=== PATIENT | male | born 1965 | race Caucasian/White ===

== ENCOUNTER 2024-12-06 16:19 | Inpatient (IN) | payer OTHER, SELFPAY ==
[2024-12-06 12:59] VITALS: BP 121/97
[2024-12-06 13:28] LABS: % Basophils 0.4 % (0-2); % Eosinophils 0.3 % (0-6); % Immature Granulocytes 0.3 % (0-0.5); % Lymphocytes 19.7 % (20.5-51.1); % Monocytes 11.2 % (1.7-9.3); % Neutrophils 68.1 % (42.2-75.2); Absolute Lymphocytes 1.8 10^3/uL (1.2-3.4); Absolute Neutrophils 6.1 10^3/uL (1.4-6.5); Hematocrit 43.6 % (39.0-52.0); Hemoglobin 15.1 g/dL (13.0-18.0); Mean Corp Hgb Conc. 34.6 g/dL (33.0-37.0); Mean Corpuscular Hgb 29.1 pg (27.0-31.0); Mean Platelet Volume 8.6 fL (7.4-10.4); Nucleated Red Blood Cells % 0 % (-); Platelet Count 180 10^3/uL (130-400); Red Blood Cell Count 5.19 10^6/uL (4.70-6.10); Red Cell Dist. Width 12.8 % (11.5-14.5); White Blood Cell Count 8.9 10^3/uL (4.8-10.8)
[2024-12-06 13:40] LABS: ALT (SGPT) 16 U/L (0-50); AST (SGOT) 20 U/L (17-59); Albumin 4.4 g/dl (3.5-5.0); Alkaline Phosphatase 69 U/L (38-126); Blood Urea Nitrogen 20 mg/dl (9-20); Carbon Dioxide 22 mmol/L (22-30); Chloride 95 mmol/L (98-107); Glucose 352 mg/dl (70-99); Potassium 3.8 mmol/L (3.5-5.1); Sodium 131 mmol/L (135-145); Total Bilirubin 0.8 mg/dl (0.2-1.3); Total Protein 6.8 g/dl (6.3-8.2); eGFR > 60.00
[2024-12-06 13:52] LABS: COVID-19 Antigen Negative (Negative)
[2024-12-06 13:54] LABS: Troponin I 0.261 ng/ml
[2024-12-06 14:48] VITALS: BP 116/82
[2024-12-06 15:01] VITALS: BP 124/82
--- NOTE | 2024-12-06 15:15 | ED.GENMED ---
History of Present Illness
General
Chief Complaint: Cardiac Symptoms
Source: patient
Exam Limitations: none
Time Seen by Provider: 12/06/24 14:42
Nursing documentation reviewed up to this point in time: agreed with
History of Present Illness
History of Present Illness:
Patient presents to ED secondary to 5-day history of chills, body ache, nonproductive cough, along with decreased appetite, as well as intermittent lightheaded sensation. Denies chest pain or shortness of breath. Denies nausea or vomiting. Denies
fever. Denies sore throat. Denies diarrhea. Denies rash. Patient's spouse is currently experiencing similar symptoms. Denies recent travel. Patient was evaluated at urgent care center, shortly prior to arrival, where he tested positive for
flu, but also had abnormal EKG. Denies smoking. There is family history of heart disease, however, with his father having had cardiac bypass at age of 50.
Review of Systems
Review of Systems
Allergies reviewed?: Yes
All Other Systems: ROS reviewed and negative except as documented in HPI and ROS
Constitutional: Reports no symptoms; Denies fever or chills
EENT: Reports no symptoms
Respiratory: Reports cough; Denies trouble breathing
Cardiac: Reports no symptoms; Denies chest pain or palpitations
ABD/GI: Reports no symptoms; Denies vomiting or diarrhea
: Reports no symptoms
Musculoskeletal: Reports muscle pain
Skin: Reports no symptoms
Neurological: Reports no symptoms
Phy Exam
Physical Exam
Physical Exam:
Physical Exam
General: no apparent distress, not acutely ill. afebrile
Head: nc/at. eomi
Neck: supple. normal range of motion.
Heart: s1/s2 regular rate and rhythm, no murmur.
Lungs: no acute respiratory distress. clear bilaterally
Abdomen: normal bowel sounds. not tender.
Neuro: alert and oriented x 3. no focal neurological deficits
Skin: no rash
Psychiatric: well kept. interactive and cooperative
Extremities: no edema. no calf tenderness.
Course
Orders/Labs/Results
Orders:
Orders
12/06/24 Breakfast
2200 calorie (18 carb) Diabetic
At Your Request: Full Participation
12/06/24 12:58
EKG [Electrocardiogram (*1)] Urgent
Reason for Study: Palpitations
EKG- Treatment ONCE
12/06/24 13:05
ECG [Electrocardiogram (*1)] Urgent
Reason for Study: Chest Pain
EKG- Treatment ONCE
12/06/24 13:19
COVID-19 Antigen Urgent
Source: Nasal Swab
Complete Blood Count/With Diff Urgent
Comprehensive Metabolic Panel Urgent
Troponin I Urgent
Influenza A+B Rapid Molecular Urgent
ESTHER Source: Nasal Swab
Specimen Description:
12/06/24 15:15
Aspirin Chewable [Low Strength Aspirin] 324 mg PO NOW STA
12/06/24 15:38
Admit/Transfer Patient As Directed
Co-Sign Provider:
Level of Care: Inpatient admission
Assign to:: Telemetry
Physician / Group: lianna
Diagnosis: elevated trop concern for NSTEMI
Reason for Telemetry: Arrhythmia
Date to Stop Telemetry: 12/09/24
Time to Stop Telemetry: 11:00
Reason for Hospitalization: NSTEMI
Expected length of stay greater than two midnights?: Yes
ELOS- Estimated Length of Stay in days: 3
I certify the patient meets the requirements for IP care: Yes
PRN Pain Medication Management As Directed
May give lesser potent ordered pain med per pt: Yes
preference::
Protocol:: Medication orders for pain may be administered in a
manner that supports deferring to patient preference
when the pt is:
- Requesting an ordered lesser potent pain medication.
Least to most potent pain medications are defined
as: acetaminophen < NSAID < tramadol < opioids
(morphine, oxycodone, hydromorphone).
- Requesting a lesser dose of the same medication IF
ORDERED.
- Requesting a less intrusive route of administration
if both routes are prescribed by the provider (PO <
IV).
12/06/24 15:39
Code Status As Directed
Resuscitation Status: Full Code
12/06/24 17:19
Troponin I Q6H
Acetaminophen [Tylenol] 650 mg PO Q4HPRN PRN
Benzonatate [Tessalon Perles] 200 mg PO TIDPRN PRN
Bisacodyl [Dulcolax] 10 mg RECTAL [id number] PRN
Dextrose 50%-Water [Dextrose 50% Syringe] 12.5 grams IV [id number] PRN
Docusate W/Senna [Senokot-S] 1 tablet PO BIDPRN PRN
Glucagon [GlucaGen] 1 mg IM PRN PRN
Insulin Aspart Corrective Mod [Novolog Flexpen-Moderate Resistance] See Protocol SC AC
Insulin Glargine Lantus [Lantus] 10 units Subcutaneous Insulin Syringe [Syringe-Insulin] 0 unit SC ONCE
Polyethylene Glycol Powder [Miralax] 17 grams PO DAILYPRN PRN
12/06/24 17:19
CARDIOLOGY CONSULT Routine
Consulting Provider: Adam Lu
Was physician already notified: Yes
Activity As Directed
Activity Level: As Tolerated
Bedside Glucose Monitoring As Directed
Frequency: AC&HS
Additional Instructions:: Change to q6h if pt on TPN, tube feeding or not eating
Vital Signs As Directed
Frequency: Per unit guidelines
DX Deep Vein Thrombosis Video Routine
12/06/24 18:00
Atorvastatin [Lipitor] 40 mg PO QPM
Enoxaparin Sodium [Lovenox] 40 mg SC QPM
12/06/24 23:19
Troponin I Q6H
12/07/24 06:00
Cardiovascular Evaluation IN AM
Glycohemoglobin (HgbA1c) IN AM
12/07/24 08:00
Aspirin Chewable [Low Strength Aspirin] 81 mg PO DAILY
Insulin Glargine Lantus [Lantus] 10 units Subcutaneous Insulin Syringe [Syringe-Insulin] 0 unit SC DAILY
Pantoprazole [Protonix] 40 mg PO DAILY
Valsartan [Diovan] 80 mg PO DAILY
12/09/24 11:00
DC Protocol for Telemetry ONCE
Abnormal Lab Results
12/06/24
13:19
Absolute Monos (auto) 1.0 H 10^3/uL
(0.1-0.6)
Lymphocytes % 19.7 L %
(20.5-51.1)
Monocytes % 11.2 H %
(1.7-9.3)
Sodium 131 L mmol/L
(135-145)
Chloride 95 L mmol/L
(98-107)
Creatinine 0.6 L mg/dL
(0.7-1.3)
Glucose 352 H mg/dl
(70-99)
Troponin I 0.261 H* ng/ml
12/06/24 13:19
12/06/24 13:19
Vital Signs
Initial and Last Documented VS:
Initial Vital Signs
Temp Pulse Resp BP Pulse Ox
98.0 F 92 16 121/97 98
12/06/24 12:59 12/06/24 12:59 12/06/24 12:59 12/06/24 12:59 12/06/24 12:59
Last Documented Vital Signs
Temp Pulse Resp BP Pulse Ox
98.3 F 85 18 123/75 97
12/06/24 18:41 12/06/24 18:41 12/06/24 18:41 12/06/24 18:41 12/06/24 18:41
MDM/Problems Addressed
MDM/Problems Addressed:
Influenza positive. Elevated troponin noted, without any significant changes noted on initial EKG. Patient remains chest pain-free.
Patient evaluated in ED by cardiology, Dr. Lu. Recommends admission to hospital service for further evaluation and treatment.
Aspirin 325mg given @ prior to arrival.
*Critical Care Note
Total Time (30-74mins, 75-104mins- exclusive of procedures): Not Applicable
ED Attending Note
-
Portions of this chart may have been created with voice recognition software.� Occasional wrong word or��sound alike� substitutions may have occurred due to the inherent limitations of voice recognition software.
Discharge Plan
Departure
Patient Disposition: Admit
Date of Disposition: 12/06/24
Time of Disposition: 15:26
Admit to: Telemetry
Presentation/result/management discussed w/ accepting MD/DO: Hospitalist
Discharge Problem:
Influenza, Abnormal cardiac enzyme level
Interventions
Interventions:
*Risk Screen - Suicide Last Done: 12/06/24 15:24
*General Assessment Last Done: 12/06/24 15:24
*Neglect/Abuse Screening Last Done: 12/06/24 15:24
ED- Fall Risk Assessment Last Done: 12/06/24 15:26
*ED COVID-19 Vaccine History Last Done: 12/06/24 15:24
*Nursing Disposition Last Done: 12/06/24 16:51
ED- Cardiac Assessment Last Done: 12/06/24 15:25
ED- Pulmonary Assessment Last Done: 12/06/24 15:25
Discharge Date and Time
Discharge Date/Time: 12/06/24 17:02
--- NOTE | 2024-12-06 15:17 | CON.CAR ---
Addendum entered and electronically signed by Adam Lu MD 12/06/24 16:02:
I saw and examined the patient.
The MOLDER SWEEP or PA's note was reviewed and I agree with the note.
Comment: General: Well developed, well nourished in NAD.
Neck: Supple, no JVD, HJR, carotids +2 B/L, no bruits bilaterally.
Heart: Non displaced PMI, RRR, no murmurs, No S3, S4, no rubs.
Lungs: Scattered rhonchi
Extremities: No clubbing, cyanosis or edema bilaterally.
Neuro: Grossly nonfocal, awake, alert and oriented x3.
Blair has a history of hypertension, diabetes, hyperlipidemia. He has had 4 days of flu symptoms with achiness and cough. He also has had right lower abdominal upper chest chest cramping. He went to urgent care today and went to the ER based on his
EKG. In ER found to have a troponin of 0.2 and cardiology consult. He denies any chest pain or shortness of breath.
Suspect this is a nonmyocardial ischemic injury in the setting of flu. He does have significant cardiac risk factors and will track troponin and EKG. Will check echocardiogram. Will consider outpatient stress testing if troponins remain flat when
he has recovered from the flu. Also may consider catheterization if troponins increase further. Discussed with ER attending as well as at bedside.
Original Note:
Consultation
Consultation Request
Date/Time Consultation Requested: 12/06/24
Date/Time Consultation Performed: 12/06/24
Requesting Provider: Dr. Germain in the ER
Performing Provider: Dr. Lu
Reason for Consultation: Chest pain, abnormal ECG
Medical History
-
History of Present Illness:
Patient came to [facility] with flu-like symptoms and also noted abdominal/chest cramp and Troponin was elevated at 0.2 so cardiology has been consulted. 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
with flu-like symptoms. Patient went to an urgent care today with his symptoms and was told to go to the ER based on his ECG. ECG in [facility] was SR with LAFB, but no acute ischemic changes. Patient complains of a cramping pain in his upper abdomen to
his chest that comes and goes. He also reports feeling lightheaded, but no syncope. No SOB or URIAS. No previous cardiac testing.
PMH:
HTN
DM 2
Hyperlipidemia
Past Medical History
Past Medical History: Other (in HPI)
Past Surgical History: Other (ENT tumor resection)
Social History
Tobacco: Non-Smoker
Alcohol: None
Drug: None
Personal:
Living: With Family
Employment: Employed (lighting equipment operator)
Family History
Family History: CAD
Allergies / Home Medications
Allergy/AdvReac Type Severity Reaction Status Date / Time
coconut Allergy Unknown Verified 12/06/24 13:05
seafood Allergy Unknown Uncoded 12/06/24 13:05
Review of Systems
-
History Source: Patient
All other systems: Negative unless noted
Physical Exam
Vital Signs
Temp Pulse Resp BP Pulse Ox
98.0 F 83 22 124/82 97
12/06/24 12:59 12/06/24 15:01 12/06/24 15:01 12/06/24 15:01 12/06/24 15:01
GEN: NAD. AAOx3
HEENT: EOMI, MMM
LUNGS: RA. No audible wheeze
CV: SR on tele. Reg, S1/S2, o murmur
ABD: soft, BS+, NT, ND
EXT: No clubbing, cyanosis, lesions or edema B/L
NEURO: Gross non-focal
SKIN: Warm, dry and pink. No rash
Lab Results
12/06/24 13:19
02/10/25 13:19
Troponin I 0.261 ng/ml H* 12/06/24 13:19
Impression / Plan
-
PCP: Unknown
Cardiology: None
Impression:
Admitted with influenza and elevated Troponin 12/06/24
Flu-like symptoms, positive for influenza A 12/06/24
Upper abdominal pain/chest discomfort
Elevated Troponin
HTN
DM 2
Hyperlipidemia
Plan:
-Patient came to [facility] with flu-like symptoms and also noted abdominal/chest cramp and Troponin was elevated at 0.2 so cardiology has been consulted. 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
started with flu-like symptoms. Patient went to an urgent care today with his symptoms and was told to go to the ER based on his ECG. ECG in [facility] was SR with LAFB, but no acute ischemic changes. Patient complains of a cramping pain in his upper
abdomen to his chest that comes and goes. He also reports feeling lightheaded, but no syncope. No SOB or RUIAS. No previous cardiac testing.
-ECG reviewed by me is SR without acute ST changes
-Chest discomfort/abdominal cramping symptoms are atypical. No active pain. No exertional CP or USA symptoms.
-Initial Troponin 0.261. Trend Troponin.
-Check echo
-Pending all of the above will tentatively manage as a nonischemic myocardial injury Troponin elevation.
-Check CVE
-Check HgbA1c. Blood glucose 352 in the ER now.
-Consider eventual outpatient stress test
[2024-12-06 15:24] VITALS: BMI 26.7
--- NOTE | 2024-12-06 15:24 | HPS.HSE ---
Family Physician
-
Family Physician:
Chief Complaint
-
Chills, body ache
History of Present Illness
59-year-old with past medical history for type 2 diabetes, hypertension, hyperlipidemia presented to us with 5-day history of chills, body ache, nonproductive cough, along with decreased appetite, as well as intermittent lightheaded sensation.
Denies chest pain or shortness of breath. Denies nausea or vomiting and diarrhea. Denies fever. Patient was evaluated at urgent care center where he tested positive for flu, but also had abnormal EKG. patient denied dysuria, hematuria.
Patient was tested positive for influenza A in ER. Patient was also noted to have elevated Trop for which he received a dose of aspirin in ER. Admitting for further management
Medical History
Past Medical History
Past Medical History: Reports Other
Additional Past Medical History:
Hypertension, hyperlipidemia, type 2 diabetes
Past Surgical History: Reports Other
Additional Past Surgical History:
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
Social History
Tobacco: Non-smoker
Alcohol: Occasional
Drug: None
Personal:
Living: With Family
Family History
Family History: Not pertinent
Allergies / Home Medications
Allergies reflects when Allergies were last updated in [facility].
Home Medications with original date entered in [facility]
Allergy/Medication List:
Allergies
Allergy/AdvReac Type Severity Reaction Status Date / Time
coconut Allergy Unknown Verified 12/06/24 13:05
seafood Allergy Unknown Uncoded 12/06/24 13:05
Review of Systems
-
Constitutional: Reports Chills
EENT: Reports No Symptoms
Respiratory: Reports Cough
Cardiac: Reports No Symptoms
Abdomen/GI: Reports No Symptoms
: Reports No Symptoms
Musculoskeletal: Reports No Symptoms
Skin: Reports No Symptoms
Neurological: Reports Weakness
Endocrine: Reports No Symptoms
Hematologic/Lymphatic: Reports No Symptoms
Psych: Reports No Symptoms
Physical Exam
Vital Signs
Vital Signs
Temp Pulse Resp BP Pulse Ox
98.0 F 83 22 124/82 97
12/06/24 12:59 12/06/24 15:01 12/06/24 15:01 12/06/24 15:01 12/06/24 15:01
Physical Exam
General: Well Developed, Well Nourished and No Apparent Distress
HEENT: NormoCephalic, Moist mucous membranes and Atraumatic
Respiratory: Clear
Cardiac: S1/S2 and Regular Rhythm; No Murmur or Rub
GI: Soft, Non Tender, Non Distended and Normal Bowel Sounds; No Organomegaly
Rectal: Deferred by Provider
Musculoskeletal: No Clubbing, No Cyanosis and No Edema
Skin: No Rash
Neuro: AO x 3 and Nonfocal/grossly intact
Psych: Calm
Laboratory Results
-
12/06/24 13:19
12/06/24 13:19
Laboratory Results
Total Bilirubin 0.8 mg/dl (0.2-1.3) 12/06/24 13:19
AST 20 U/L (17-59) 12/06/24 13:19
ALT 16 U/L (0-50) 12/06/24 13:19
Alkaline Phosphatase 69 U/L (38-126) 12/06/24 13:19
Troponin I 0.261 ng/ml H* 12/06/24 13:19
Data Reviewed
-
Lab Data: Labs Reviewed by me
Impression/Plan
-
# Influenza A
Defer Tamiflu as patient harjeet symptomatic for last 5 days
# Pseudohyponatremia with elevated blood sugar
-Corrected sodium is 137
# Type 2 diabetes with hyperglycemia
-Blood sugar 352
-sliding scale
-CHO diet
-Metformin held
# Elevated troponin likely NSTEMI in setting of influenza A
-Trop 0.261
-EKG with impression of normal sinus rhythm, left anterior vascular block, inferior infract
-Aspirin continued
-Continue to trend Trope
-Cardiology consulted
#Essential hypertension
-Valsartan continued
#Hyperlipidemia
-Statin
DVT prophylaxis
-Lovenox subcu
# CODE STATUS
-Full code
[2024-12-06 16:00] VITALS: BP 110/79
--- NOTE | 2024-12-06 16:23 | W.PN.UPDATE ---
Update Note
Progress Note Update
This is an addendum to the H&P written by Haleigh Gooden in 12/06/2024. Patient seen and examined independently with DIE SET UP WORKER.
59-year-old male past medical history of type 2 diabetes, hypertension, hyperlipidemia, presenting with chills, body ache and nonproductive cough and decreased appetite and lightheadedness for 5 days. No chest pain or shortness of breath. No
fever. No diarrhea. Pulses similar symptoms. Patient was seen in urgent care where she tested positive for flu and had abnormal EKG.
EKG shows normal sinus rhythm, left anterior fascicular block without ischemic changes.
Labs are troponin of 0.26. Blood sugar 352.
Influenza A positive.
Patient with influenza A infection. Likely nonischemic myocardial injury as no chest pain. Out of the window for Tamiflu. Trend troponins. Aspirin given. Check echo. Cardiology consulted. Aspirin given.
Check hemoglobin A1c. Start 10 units of Lantus for hyperglycemia. Hold metformin.
[2024-12-06 18:01] LABS: Glucose - Point of Care 363 mg/dl (70-99)
[2024-12-06 18:41] VITALS: BP 123/75
[2024-12-06] MEDS: NOVOLOG FLEXPEN-MODERATE RESISTANCE 9 UNITS SC (18:41)
[2024-12-06] MEDS: LANTUS 0.1 UNITS SC (18:41)
[2024-12-06] MEDS: LOVENOX 40 MG SC (18:42)
[2024-12-06] MEDS: LIPITOR 40 MG PO (18:42)
[2024-12-06 20:50] LABS: Troponin I 0.156 ng/ml
[2024-12-06 22:31] LABS: Glucose - Point of Care 258 mg/dl (70-99)
[2024-12-06 23:42] VITALS: BP 117/80
[2024-12-07 02:43] LABS: Troponin I 0.185 ng/ml
[2024-12-07 03:36] VITALS: BP 132/76
[2024-12-07 07:13] LABS: Glucose - Point of Care 293 mg/dl (70-99)
[2024-12-07 07:50] VITALS: BP 128/75
[2024-12-07] MEDS: PROTONIX 40 MG PO (08:28)
[2024-12-07] MEDS: DIOVAN 80 MG PO (08:28)
[2024-12-07] MEDS: LANTUS 0.1 UNITS SC (08:28)
[2024-12-07] MEDS: LOW STRENGTH ASPIRIN 81 MG PO (08:28)
[2024-12-07] MEDS: NOVOLOG FLEXPEN-MODERATE RESISTANCE 5 UNITS SC (08:29)
[2024-12-07 09:41] LABS: Troponin I 0.145 ng/ml
[2024-12-07 09:52] LABS: Total Cholesterol 187 mg/dl (50-199); Triglyceride 133 mg/dl (10-149); Very Low Density Lipoprotein 26 mg/dl (0-30)
[2024-12-07 10:13] LABS: Glycohemoglobin (HgbA1c) 12.8 % (4.0-5.6)
--- NOTE | 2024-12-07 11:01 | W.PN.CARDCBS ---
Addendum entered and electronically signed by Adam Lu MD 12/07/24 11:30:
I saw and examined the patient.
The HOMEBIRTH MIDWIFE or PA's note was reviewed and I agree with the note.
Comment: General: Well developed, well nourished in NAD.
Neck: Supple, no JVD, HJR, carotids +2 B/L, no bruits bilaterally.
Heart: Non displaced PMI, RRR, no murmurs, No S3, S4, no rubs.
Lungs: Scattered rhonchi at the bases
Extremities: No clubbing, cyanosis or edema bilaterally.
Neuro: Grossly nonfocal, awake, alert and oriented x3.
Echocardiogram okay. Stable cardiology status for discharge. Troponin elevation felt to be nonischemic myocardial injury as rapidly decreased. Will arrange outpatient stress testing. Follow-up will be arranged. Discussed with primary service.
Original Note:
Today's Communication / Plan
-
continue asa, statin, valsartan
needs improved diabetic control
OP cardiac stress test
continue supportive care of flu
OP cardiac follow up arranged
Impression / Plan
-
PCP: Unknown
Cardiology: None
Impression:
Flu-like symptoms, positive for influenza A 12/06/24
Upper abdominal pain
Elevated Troponin, suspected nonischemic myocardial injury
HTN
DM 2
Hyperlipidemia
ECHO 12/07/24: EF 55 to 60%, aortic sclerosis, trace AR
Plan:
-Patient presented with flu like symptoms and tested positive for influenza A.
-cardiology consulted due to elevated troponin, peaked at 0.261, suspected nonischemic myocardial injury. no CP. EKG SR with LAFB.
-echo with results as above, EF normal.
-asa 81mg daily started this admission
-LDL pending. lipitor 40mg QPM continued
-hgbA1c 12.8%. needs improved diabetic control. would consider diabetic mgmt consult. on metformin as OP, may need insulin. to follow up with endocrinology as OP, patient says going to see Dr. Chuy Green
-plan for outpatient stress test once recovered
-OP cardiac follow up arranged
-d/w nursing. d/w patient and at bedside
PREADMIT DATA:
-Patient came to [facility] with flu-like symptoms and also noted abdominal/chest cramp and Troponin was elevated at 0.2 so cardiology has been consulted. 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
started with flu-like symptoms. Patient went to an urgent care today with his symptoms and was told to go to the ER based on his ECG. ECG in [facility] was SR with LAFB, but no acute ischemic changes. Patient complains of a cramping pain in his upper
abdomen to his chest that comes and goes. He also reports feeling lightheaded, but no syncope. No SOB or URIAS. No previous cardiac testing.
Progress Note - Patents Examiner
Subjective
Date of Service: December 07, 2024
no CP, SOB.
Objective
Labs:
12/06/24 13:19
12/06/24 13:19
Labs
Hgb 15.1 g/dL (13.0-18.0) 12/06/24 13:19
Hct 43.6 % (39.0-52.0) 12/06/24 13:19
Plt Count 180 10^3/uL (130-400) 12/06/24 13:19
Sodium 131 mmol/L (135-145) L 12/06/24 13:19
Potassium 3.8 mmol/L (3.5-5.1) 12/06/24 13:19
BUN 20 mg/dl (9-20) 12/06/24 13:19
Creatinine 0.6 mg/dL (0.7-1.3) L 12/06/24 13:19
Glucose 352 mg/dl (70-99) H 12/06/24 13:19
Troponins
12/06/24 12/06/24 12/06/24
13:19 20:16 23:19
Troponin I 0.261 H* 0.156 H* D Cancelled
12/07/24 12/07/24
02:05 08:41
Troponin I 0.185 H* 0.145 H*
Vital Signs and I&O:
Vital Signs
Temp Pulse Resp BP Pulse Ox
98.3 F 83 17 128/75 96
12/07/24 07:50 12/07/24 07:50 12/07/24 07:50 12/07/24 07:50 12/07/24 07:50
Vital Signs
Temp Pulse Resp BP Pulse Ox
98.3 F 83 17 128/75 96
12/07/24 07:50 12/07/24 07:50 12/07/24 07:50 12/07/24 07:50 12/07/24 07:50
Intake & Output
12/05/24 12/06/24 12/07/24 12/08/24
07:59 07:59 07:59 07:59
Intake Total 480 / 480
Output Total 250 / 250
Balance -250 / -250 480 / 480
Physical Exam
Physical Exam
GEN: No distress, awake, alert, oriented x3
HEENT: supple, anicteric, mmm, eomi
LUNGS: CTA B/L, no wheezes/rales
CV: Reg, S1/S2, no murmur
ABD: soft, BS+, NT/ND
EXT: No cyanosis, clubbing, edema
NEURO: Gross non-focal
SKIN: Warm, pink, dry. No rash
[2024-12-07 11:46] VITALS: BP 105/67
[2024-12-07 11:47] LABS: Glucose - Point of Care 346 mg/dl (70-99)
--- NOTE | 2024-12-07 12:08 | PN.DE.MGMTRT ---
Insulin Management
- -
12/07/2024 Diabetes Management Consult
Patient admitted 12/06 with flu like symptoms for 5 days. PMH diabetes, HTN, HLD. Patient tested + for Flu A. Prior to admission was taking metformin 500 mg bid. A1C on admission 12.8% cr .6, eGFR >60.
Patient is awake alert and oriented, able to discuss diabetes management. at bedside.
Patient has been ordered 10 units lantus daily and moderate corrective insulin. Glucose 293 and 346 today.
Will start hs lantus 15 units and AC novolog 10 units, change moderate corrective to low. Will also resume metformin at increased dose 1000 BID
Patient anxious for discharge, will have SHAZIA RN teach patient insulin administration.
RX for insulin and pen needles in ambulatory orders. Patient states he has working glucose monitor and supplies.
Diabetes History
- -
Type of Diabetes: 2 requiring insulin
Pre-Admission Diabetes Regimen
12/06/24
13:19
Creatinine 0.6 L
Lab Results
Hemoglobin A1c 12.8 % (4.0-5.6) H 12/07/24 08:41
Insulin Pump Settings
IP Diabetes Regimen
12/06/24 12/06/24 12/06/24
13:19 17:48 22:14
Glucose 352 H
POC Glucose 363 H 258 H
12/07/24 12/07/24
07:01 11:36
Glucose
POC Glucose 293 H 346 H
Meal type: Breakfast
Amount consumed: 100%
Patient Education
[2024-12-07] MEDS: NOVOLOG FLEXPEN-MODERATE RESISTANCE SC (12:12)
[2024-12-07] MEDS: NOVOLOG FLEXPEN-LOW RESISTANCE 4 UNITS SC (12:14)
[2024-12-07] MEDS: NOVOLOG FLEXPEN 10 UNITS SC (13:07)
[2024-12-07 15:21] VITALS: BP 116/74
[2024-12-07 15:33] LABS: HDL Cholesterol 26 mg/dl; LDL Cholesterol, Calculated 135 mg/dl
--- NOTE | 2024-12-07 15:57 | W.DS.TRANS ---
DC Summary - Bullet Maker
-
Discharge Instructions:
Discharge Diagnosis/Procedures Atypical chest pain.
Diabetes with hyperglycemia
Diet Diabetic, Carb Controlled
Others Tests you are scheduled for an exercise nuclear stress
test 12/20/24 @ 7:40AM at [facility] office in [facility].
Instructions:
Stand-Alone Forms:
Changes to Home Medications: Yes
Discharge Medications:
DC Medications w/original date entered in [facility]
atorvastatin 40 mg tablet 40 mg PO QPM 12/06/24
esomeprazole magnesium 20 mg capsule,delayed release 20 mg PO DAILY 12/06/24
lactobacillus combination no.4 3 billion cell capsule (Probiotic) 3,000 mmu cells PO DAILY 12/06/24
valsartan 80 mg tablet 80 mg PO DAILY 12/06/24
aspirin 81 mg chewable tablet 81 mg PO DAILY #30 tabs 12/07/24
insulin aspart U-100 100 unit/mL (3 mL) subcutaneous pen (Novolog FlexPen U-100 Insulin aspart) 10 unit (0.1 mL) SC AC #5 ea 12/07/24
insulin glargine 100 unit/mL (3 mL) subcutaneous pen (Lantus Solostar U-100 Insulin) 15 unit (0.15 mL) SC HS #5 ea 12/07/24
metformin 1,000 mg tablet 1,000 mg PO BID@0800,1700 #60 tabs 12/07/24
pen needle, diabetic 32 gauge x ' (BD Ultra-Fine Aspen Pen Needle) #200 ea 12/07/24
Home Medication Changes
Insulin initiated
Metformin dose increased
Pending Results: No
[2024-12-07 16:00] LABS: Glucose - Point of Care 234 mg/dl (70-99)
--- NOTE | 2024-12-07 16:11 | PTCARENOTE ---
I met with Evans to discuss insulin administration. He had been previously instructed by medical staff physician and demonstrating proper use of the insulin pen. I reviewed proper technique, storage and administration. Evans verbalized understanding and
demonstrated proper technique with sample insulin pen. We discussed rotation of sites and importance of monitoring glucose levels pre-meal, bedtime and as needed for hypo/hyperglycemia. Rapid and long acting insulin reviewed and I provided written
material on onset/action/duration. I recommended he separate and label insulin pens once he receives them from the pharmacy to prevent any errors. Hypoglycemia recognition and treatment reviewed. Evans was able to verbalize understanding of
treatment. I provided information on obtaining medical alert identification. I encouraged Evans to register for the outpatient DSME program and to follow up with his primary care if blood sugars are not in target range.
[2024-12-07] MEDS: AFLURIA (36 mos+) 2024-2025 FORMULA 0.5 ML IM (16:22)
== END 2024-12-07 17:35 | disposition home or self-care (01) | DRG 194 ==
LOC: 1 ACUTE 16:19
PROVIDERS: Emergency Medicine; Physician Assistant Medical; Registered Nurse; ADMITTING PHYSICIAN Hospitalist; ATTENDING PHYSICIAN Internal Medicine; CONSULT PHYSICIAN Internal Medicine Cardiovascular Disease; EMERGENCY PHYSICIAN Emergency Medicine; FAMILY PHYSICIAN Family Medicine
PROC: 3E02340 Introduction of Influenza Vaccine into Muscle, Percutaneous Approach (ICD-10-PCS; 2024-12-07)
DX: J10.1 Influenza due to other identified influenza virus with other respiratory manifestations (principal); I5A Non-ischemic myocardial injury (non-traumatic); I25.10 Atherosclerotic heart disease of native coronary artery without angina pectoris; E78.5 Hyperlipidemia, unspecified; I10 Essential (primary) hypertension; E11.65 Type 2 diabetes mellitus with hyperglycemia; Z20.822 Contact with and (suspected) exposure to COVID-19; Z23 Encounter for immunization; Z79.84 Long term (current) use of oral hypoglycemic drugs
CPT/HCPCS: 80053; 80061; 82962; 83036; 84484; 85025; 87502; 87811; 90686; 93005; 93306; 99285; G0008

== ENCOUNTER → 2024-12-20 07:14 | Outpatient (REF) | payer OTHER, SELFPAY | LOC: HWRCS 07:14 | PROVIDERS: ATTENDING PHYSICIAN Physician Assistant; FAMILY PHYSICIAN Family Medicine | DX: R07.9 Chest pain, unspecified (principal); R74.8 Abnormal levels of other serum enzymes; E11.9 Type 2 diabetes mellitus without complications | CPT/HCPCS: 78452; 93017; A9500; J2785 ==